=== PATIENT | male | born 1965 | race Caucasian/White ===

== ENCOUNTER 2017-05-12 14:13 | Emergency (ER) | payer OTHER ==
[2017-05-12] MEDS ORDERED: KETOROLAC TROMETHAMINE 30 MG/ML SOL IM ONE (14:39)
[2017-05-12] MEDS ORDERED: DIAZEPAM 5MG/ML SOL IM ONE (14:39)
[2017-05-12] MEDS ORDERED: DIAZEPAM 5 MG TAB ONE (14:45)
[2017-05-12] MEDS ORDERED: DIAZEPAM 5 MG TAB PO ONE (14:46)
[2017-05-12] MEDS ORDERED: KETOROLAC TROMETHAMINE 30 MG/ML SOL ONE (14:47)
[2017-05-12 15:47] VITALS: BP 121/79; PULSE 72; RESP 20; TEMP 97.3; O2SAT 100
== END 2017-05-12 15:20 | disposition home or self-care (01) | DRG 552 ==
LOC: ED 14:13
DX: M54.9 Dorsalgia, unspecified (principal)
CPT/HCPCS: 96372; 99282; 99283; J1885